=== PATIENT | female | born 1955 | race Caucasian/White ===

== ENCOUNTER 2020-12-21 11:03 | Day surgery (SDC) | payer OTHER ==
--- NOTE | 2020-12-14 15:22 | RAD REPORT ---
EXAM DESCRIPTION: RAD - Chest Pa And Lat (2 Views) - 12/14/2020 3:17 pm CLINICAL HISTORY: pre op Chest pain. COMPARISON: No comparisons FINDINGS: The lungs are clear. The heart is normal in size. No displaced fractures. IMPRESSION: No acute or concerning finding suspected.
[2020-12-14 15:30] LABS: Absolute Lymphocytes (CBC) 1.6 K/uL (0.7-4.9); Basophils % 0.5 % (0-1.3); Hematocrit 30.3 % (36.0-45.0); Lymphocytes % 18.7 % (15.3-44.8); MPV 7.8 fL (7.6-11.3); RBC Red Blood Cell Count 3.82 M/uL (3.86-4.86)
[2020-12-14 15:31] LABS: Protime INR 0.92
[2020-12-14 15:44] LABS: Potassium 3.9 mmol/L (3.5-5.1)
[2020-12-21] MEDS: NA CHLORIDE 0.9% 1,000 ML ONE (11:30)
[2020-12-21] MEDS ORDERED: CEFAZOLIN/SWI 2gm 2 GM/20 ML SYR ONE (11:45)
[2020-12-21] MEDS ORDERED: FENTANYL CITR 100 MCG/2 ML ONE (13:01)
[2020-12-21] MEDS ORDERED: MIDAZOLAM HCL 2 MG/2 ML INJ ONE (13:01)
[2020-12-21] MEDS ORDERED: propofoL 200 MG/20 ML VIAL IV ONE (13:01)
[2020-12-21] MEDS ORDERED: ONDANSETRON 4 MG/2 ML VIAL ONE (13:40)
[2020-12-21] MEDS ORDERED: GENTAMICIN 100 MG/100 ML BAG 100 ML IV ONE (13:46)
--- NOTE | 2020-12-21 14:28 | RAD REPORT ---
EXAM DESCRIPTION: RAD - Urethrocystogrphy Retrograde - 12/21/2020 2:12 pm CLINICAL HISTORY: ICD N 20.0 FINDINGS: 21 fluoroscopic spot images obtained. Fluoroscopy time 0.57 minutes Both ureters were cannulated and contrast administered. Examination was performed by Dr Torres. Nitin se refer to his report for additional findings and
[2020-12-21 14:35] VITALS: O2SAT 98
[2020-12-21] MEDS ORDERED: HYDROCODONE/APAP 5/325 MG TAB PO PRN (15:23)
[2020-12-21] MEDS ORDERED: PHENAZOPYRIDINE 100MG TAB PO ONE (15:23)
[2020-12-21 15:24] VITALS: BP 121/64; TEMP 98.8
--- NOTE | 2020-12-21 19:09 | OP ---
Surgeon: MARYJO KILGORE Preoperative Diagnosis: 1.Bladder lesion. 2.Persistent lower urinary tract symptoms. Postoperative Diagnoses: 1.Bladder lesion. 2.Persistent lower urinary tract symptoms. 3.Bilateral ureterovesical junction obstruction. Principle Procedures: 1.Cystoscopy. 2.Bladder biopsies, multiple for a lesion occupying approximately 0.5 of volume of the bladder. 3.Fulguration of lesions and biopsy site. 4.Bilateral retrograde pyelographies. Indication For Procedure: Ms. Mercado presented to the Urology Clinic with persistent bothersome lower urinary symptoms in the setting of recurrent and persistent gross hematuria. Despite multiple cultur es that had been sent revealing no growth or only a low colony count fungal, and despite treatment wi th cefpodoxime as well as fluconazole previously, the patient's persistent symptoms and presence of t he lesion persisted. As a result, she was recommended for operative evaluation with cystoscopy and b ladder biopsies as above. Because she had previously undergone an ultrasound, which saw no upper tra ct abnormalities, retrograde pyelographies were recommended to rule out any upper tract urothelial le sions. Procedure In Detail: The patient was consented in the preoperative holding area before being transfe rred to the operative suite where general anesthesia was induced. She was given Ancef plus gentamici n 100 mg IV antimicrobial prophylaxis. Pneumo boots were provided for DVT prophylaxis. She was plac ed in the lithotomy position, padded and secured to the table appropriately. Her genitalia were prep ped using Hibiclens, and she was draped in standard fashion. The case was begun using a 22-Swedish ri gid cystoscope to traverse the urethra and into the bladder. Immediately was noted significant cloud y urine, which was taken for culture. The bladder was decompressed and then irrigated in order to im prove visualization. Once the debris and cloudiness was clear, I then surveyed the bladder and noted the following: Significant erythematous and slightly raised mucosa involving the inferior 1/2 of the bladder extendi ng from the right lateral wall through the posterior wall of the bladder and into the left lateral do me including a portion of the bladder neck but sparing most of the dome with a clear line of demarcat ion observed. No papillary mucosal lesions were noted. The mucosa was significantly friable in thes e locations and did bleed with even mild contact with the cystoscope. As a result, biopsies were the n performed initially starting with the left lateral wall. At least 3 biopsies were taken of that si te to obtain termite control service representative sampling of the lesion in that region. Because of the extensive bleeding associated with each biopsy due to the underlying inflammation likely present, I then had to pause t he biopsies to fulgurate the areas biopsied in order to continue visualization. I then proceeded to the posterior wall of the bladder where again several biopsies were taken to representatively sample the lesion in that region. Again, because of the significant bleeding associated with each biopsy si te, I had to again fulgurate each of those areas extensively before being able to visualize and proce ed. I then proceeded to the right lateral wall where additional termite control service representative biopsies were taken i n that region and sent for pathologic analysis. Fulguration was performed of those biopsy sites and the bladder was irrigated and repeat visualization confirmed adequate biopsies of a significant porti on of the lesion occupying the above-mentioned component of the bladder. I then turned my attention to perform a retrograde pyelogram on the left side. Left retrograde pyelography: Using a cone-tipped catheter and a 70:30 mixture of Omnipaque and saline, contrast was injected via t he lumen of the cone-tipped catheter and did only propagate into the distal component of the ureter b efore the contrast would simply emanate around the cone-tip catheter and efflux into the bladder. De spite attempts to manipulate and reposition the cone-tipped catheter, no further contrast could succe ssfully be navigated into the mid or proximal ureter for evaluation further. As a result, I paused a nd turned my attention to the right ureteral orifice. Right retrograde pyelography: Similarly, using the cone-tipped catheter and a 70:30 mixture of Omnipaque and saline, contrast was i njected on the right side, but none of it would propagate up any component of the ureter and simply e ffluxed into the bladder. As a result, I employed a 5-Swedish ureteral access catheter and utilized t he tip of a hydrophilic glide wire 0.35 in order to gain access with some difficulty into the right u reteral orifice. I then used a 70:30 mixture of Omnipaque and saline to inject contrast and did obse rve the contrast to propagate with some resistance up the distal into the mid and proximal ureter bef ore partially entering the renal pelvis. No ureteral filling defects were noted though there were ar eas of dilatation of the ureter along the course of the ureter without any significant hydrostatic co lumn noted. I thus advanced the 5-Swedish ureteral access catheter further into the mid and ultimatel y into the proximal ureter, injecting full-strength contrast each time in order to get the contrast t o enter a minimally dilated renal pelvis and each of the calices and infundibulum were delineated wit hout evidence of filling defect. There was some mild tortuosity at the level of the ureteropelvic ju nction on the right side indicative of a degree of obstruction, likely at the ureterovesical junction . I thus removed the 5-Swedish ureteral access catheter to observe drainage on the right side, and wh ile drainage was indeed noted, there was delay in the drainage indicative of partial obstruction. I then turned my attention back to the left ureteral orifice and attempted to utilize the 5-Swedish ur eteral access catheter along with the hydrophilic glide wire as before in order to gain access into t he ureteral orifice to have more success with performing the retrograde pyelogram with full-strength contrast. However, despite multiple attempts, I was unable to navigate the 5-Swedish ureteral access catheter more than a few millimeters into the ureteral orifice. Attempts to inject contrast would on ly efflux the contrast around the catheter back into the bladder until eventually a submucosal dissec tion occurred and contrast did fill around the distal ureter within the intravesical component of the ureter in the bladder. As a result, I removed the catheter and attempted an angled Glidewire with n o success to gain access into the ureteral orifice and proximal ureter for the purposes of attempted retrograde pyelogram and stent placement. I then surveyed the bladder again, and each of the biopsy sites was adequately hemostatic, and so an 18-Swedish urethral Santizo catheter was placed into her blad ml with ease with 10 cc of sterile water placed into the balloon. The catheter was placed to a floo r bag, and the patient was taken out of the lithotomy position. She was then awakened from general a nesthesia, transferred to a stretcher, and then transferred to the recovery room in good condition. Complications: Left UVJ submucosal contrast extravasation. Discharge disposition: I counseled the patient as well as her to be aware of the potential o bstruction that could be caused due to the submucosal extravasation of contrast around the ureteral o rifice of the left ureter. I explained that should she experience any flank pain or discomfort, this could represent obstruction, which may require intervention. As such, I asked him to let me know. We will assess for this when she follows up on Thursday or Thursday with nurse practitioner, Zayda gilliland Santizo catheter removal and voiding trial. An assessment for CVA tenderness should be also made at that time. She will be discharged with a prescription for Augmentin 500 mg p.o. t.i.d. for the next 5 days while we await the results of the cystoscopic bladder aspirate urine culture sent intraoperati vely. Subsequent followup should be established with me in the Urology Clinic in about 2 weeks to di scuss the results of the pathology from her bladder biopsies. Should there be any sign of obstructio n, a renal ultrasound should be obtained probably as a percutaneous nephrostomy tube would have to be considered. As such, a serum basic metabolic panel should also be obtained if there is any evidence of obstruction to assess for signs of renal function decline, which would mandate placement of the p ercutaneous nephrostomy tube. DAVID/MODL Voice ID: [id number] Report ID: [id number]
== END 2020-12-21 15:50 | disposition home or self-care (01) ==
LOC: OR 11:03
PROVIDERS: ATTEND Urology
PROC: 0TBB8ZX Excision of Bladder, Via Natural or Artificial Opening Endoscopic, Diagnostic (ICD-10-PCS; 2020-12-21)
PROC: 0TBB8ZX Excision of Bladder, Via Natural or Artificial Opening Endoscopic, Diagnostic (ICD-10-PCS; principal; 2020-12-21 14:00)
DX: N30.00 Acute cystitis without hematuria (principal); N39.0 Urinary tract infection, site not specified; N81.2 Incomplete uterovaginal prolapse; N13.70 Vesicoureteral-reflux, unspecified; Z20.822 Contact with and (suspected) exposure to COVID-19
CPT/HCPCS: 52204; 52234; 87088; 85025; 87086 ×2; 80048; 36415; 85610; 82947 ×2; 88305; 71046; 74450; 51610; U0002; J2704; J2250; J3010; J1580; J0690; J7030; J2405

== ENCOUNTER 2021-02-17 21:22 | Emergency (ER) | payer OTHER ==
--- OUTSIDE RECORDS SUMMARY | 2021-02-17 21:25 | XMS REPORT | Continuity of Care Document ---
:1955 Author Organization [facility] Address [facility] [place] [address] Care Team Providers Name Role Phone Unavailable Unavailable Unavailable Problems This patient has no known problems. Allergies, Adverse Reactions, Alerts This patient has no known allergies or adverse reactions. Medications This patient has no known medications. Procedures This patient has no known procedures. Encounters Start End Encounter Admission Attending Care Care Encounter Source Date/Time Date/Time Type Type Clinicians Facility Department ID 2021-01-07 2021-01-07 Outpatient [facility] [id number] [facility] 2020-12-25 2020-12-25 Outpatient [facility] [id number] [facility] 2020-11-29 2020-11-29 Outpatient [facility] [id number] [facility] 2020-11-27 2020-11-27 Outpatient [facility] [id number] [facility] 2020-10-31 2020-10-31 Outpatient [facility] [id number] [facility] 2020-10-23 2020-10-23 Outpatient [facility] [id number] [facility] 2020-08-08 2020-08-08 Outpatient [facility] [id number] [facility] Clinics Results This patient has no known results.
[2021-02-17] MEDS ORDERED: NA CHLORIDE 0.9% 1,000 ML ONE (22:22)
[2021-02-17 22:36] LABS: Absolute Lymphocytes (CBC) 1.7 K/uL (0.7-4.9); Basophils % 0.4 % (0-1.3); Hematocrit 28.5 % (36.0-45.0); Lymphocytes % 15.7 % (15.3-44.8); RBC Red Blood Cell Count 3.76 M/uL (3.86-4.86)
[2021-02-17 22:56] LABS: ALT/SGPT 20 U/L (12-78); AST/SGOT 9 U/L (15-37); Albumin 3.3 g/dL (3.4-5.0); Alkaline Phosphatase 110 U/L (45-117); BUN Blood Urea Nitrogen 29 mg/dL (7-18); Bicarbonate 24 mmol/L (21-32); Bilirubin Direct < 0.1 mg/dL (0-0.2); Bilirubin Total 0.2 mg/dL (0.2-1.0); Glucose Level 168 mg/dL (74-106); Lipase 92 U/L (73-393); Potassium 4.1 mmol/L (3.5-5.1); Protein, Total 7.6 g/dL (6.4-8.2); Sodium Level 140 mmol/L (136-145)
[2021-02-17 23:02] LABS: Protime INR 0.97
[2021-02-18 00:03] LABS: Urine Blood 3+ (Negative); Urine Glucose 2+ (Negative); Urine Protein 3+ (Negative); Urine Specific Gravity 1.025 (1.005-1.030)
[2021-02-18 00:23] LABS: Urine Bacteria <20 /HPF (<20); Urine RBC 20-50 /HPF (NONE SEEN)
[2021-02-18] MEDS ORDERED: CEFTRIAXONE/SWI 1gm 1 GM/10 ML SYR ONE (00:53)
[2021-02-18] MEDS ORDERED: NA CHLORIDE 0.9% 100 ML ONE (00:53)
--- NOTE | 2021-02-18 00:56 | ER ---
Nurse's Notes [facility] Name: Blossom Mercado Age: 65 yrs Sex: Female : 1955 Arrival Date: 02/17/2021 Time: 21:26 Bed 8 Private MD: Diagnosis: Cystitis, unspecified with hematuria Presentation: 02/17 21:36 Chief complaint: Patient states: Urinated with pure red blood with clots in it today ca1 started around [address] until now[address] See Dr[address] Torres, urologist for Interstitial Cystitis. I've had blood tinged urine before but this time it's just blood with clots. Denies fever. Denies burning with urination. Coronavirus screen: Client denies travel out of the [place] in the last 14 days. At this time, the client does not indicate any symptoms associated with coronavirus-19. Ebola Screen: Patient negative for fever greater than or equal to 101.5 degrees Fahrenheit, and additional compatible Ebola Virus Disease symptoms Patient denies exposure to infectious person. Patient denies travel to an Ebola-affected area in the 21 days before illness onset. No symptoms or risks identified at this time. Initial Sepsis Screen: Does the patient meet any 2 criteria? No. Patient's initial sepsis screen is negative. Does the patient have a suspected source of infection? No. Patient's initial sepsis screen is negative. Risk Assessment: Do you want to hurt yourself or someone else? Patient reports no desire to harm self or others. Onset of symptoms was February 17, 2021. 21:36 Method Of Arrival: Ambulatory ca1 21:36 Acuity: INGRID 2 ca1 Historical: - Allergies: 21:45 Sulfa (Sulfonamide Antibiotics); ca1 - Home Meds: 21:45 metformin 750 mg Oral Tb24 1 tab twice a day [Active]; clopidogrel 75 mg oral tab 1 tab ca1 once daily [Active]; atorvastatin 40 mg oral tab 1 tab once daily [Active]; losartan 50 mg oral tab 1 tab once daily [Active]; Lantus 100 unit/mL Sub-Q soln daily [Active]; ozempic 0.25 weekly [Active]; montelukast 10 mg oral tab 1 tab once daily [Active]; amitriptyline 25 mg Oral tab 1 tab once daily [Active]; Elmiron 100 mg oral cap 1 cap 3 times per day [Active]; - PMHx: 21:45 insterstitial cystitis; Diabetes - IDDM; Hypertension; TIA; CVA; ca1 - PSHx: 21:45 Hysterectomy; Cholecystectomy; ca1 - Immunization history:: Client reports having NOT received the Covid vaccine. Pneumococcal vaccine is not up to date, Flu vaccine is not up to date. - Social history:: Smoking status: Patient denies any tobacco usage or history of. Screenin:49 Abuse screen: Denies threats or abuse. Denies injuries from another. Nutritional rr5 screening: No deficits noted. Tuberculosis screening: No symptoms or risk factors identified. Fall Risk IV access (20 points). Total Greer Fall Scale indicates No Risk (0-24 pts). Assessment: 23:15 General: Appears in no apparent distress. comfortable, Behavior is calm, cooperative, rr5 appropriate for age. Pain: Complains of pain in pelvis. Neuro: Level of Consciousness is awake, alert, obeys commands, Oriented to person, place, time, situation. Cardiovascular: Capillary refill < 3 seconds Patient's skin is warm and dry. Respiratory: Airway is patent Respiratory effort is even, unlabored, Respiratory pattern is regular, symmetrical. GI: No signs and/or symptoms were reported involving the gastrointestinal system. : Urine is cloudy, Reports blood with clot urine. EENT: No signs and/or symptoms were reported regarding the EENT system. Derm: Skin is intact, is healthy with good turgor, Skin temperature is warm. Musculoskeletal: Capillary refill < 3 seconds. 02/18 00:15 Reassessment: Patient appears in no apparent distress at this time. Patient and/or rr5 family updated on plan of care and expected duration. Pain level reassessed. Patient is alert, oriented x 3, equal unlabored respirations, skin warm/dry/pink. awaiting for results. 01:18 Reassessment: Patient appears in no apparent distress at this time. Patient is alert, rr5 oriented x 3, equal unlabored respirations, skin warm/dry/pink. discharge instruction given and explained without complaints made Patient states symptoms have improved. Vital Signs: 02/17 21:36 BP 125 / 84; Pulse 128; Resp 18 S; Temp 98.1(TE); Pulse Ox 100% on R/A; Weight 87.09 kg ca1 (R); Height 5 ft. 9 in. (175.26 cm) (R); Pain 0/10; 23:42 BP 149 / 82; Pulse 102; Resp 14; Pulse Ox 100% ; rv 23:46 BP 124 / 70; Pulse 104; Resp 22; Pulse Ox 99% ; rr5 02/18 00:56 BP 147 / 85; Pulse 102; Resp 20; Pulse Ox 99% ; rr5 01:19 BP 134 / 75; Pulse 105; Resp 19; Pulse Ox 98% ; rr5 02/17 21:36 Body Mass Index 28.35 (87.09 kg, 175.26 cm) ca1 ED Course: 02/17 21:26 Patient arrived in ED. bp1 21:40 Triage completed. ca1 21:45 Arm band placed on right wrist. ca1 21:47 Luis Zepeda, GREGORIO is Primary Nurse. rr5 21:48 Patient has correct armband on for positive identification. Bed in low position. Call rr5 light in reach. bus driver/monitor on. Pulse ox on. NIBP on. 21:52 Jose Antonio Reynoso MD is Attending Physician. mh7 22:00 Inserted saline lock: 20 gauge in right forearm, using aseptic technique. Blood rr5 collected. 22:41 CT Stone Protocol In Process Unspecified. EDMS 02/18 00:54 Sonu Torres MD is Referral Physician. mh7 01:19 No provider procedures requiring assistance completed. IV discontinued, intact, rr5 bleeding controlled, No redness/swelling at site. Pressure dressing applied. Administered Medications: 02/17 22:10 Drug: NS 0.9% 1000 ml Route: IV; Rate: 1000 ml; Site: right forearm; rr5 02/18 01:19 Follow up: Response: No adverse reaction; IV Status: Completed infusion; IV Intake: rr5 1000ml 00:38 Drug: Rocephin (cefTRIAXone) 1 grams Route: IV; Rate: per protocol; Site: right forearm;rr5 01:18 Follow up: Response: No adverse reaction; IV Status: Completed infusion; IV Intake: rr5 100ml Intake: 01:18 IV: 100ml; Total: 100ml. rr5 01:19 IV: 1000ml; Total: 1100ml. rr5 Outcome: 00:55 Discharge ordered by . mh7 01:19 Discharged to home ambulatory, with family. rr5 01:19 Condition: stable 01:19 Discharge instructions given to patient, Instructed on discharge instructions, follow up and referral plans. medication usage, Demonstrated understanding of instructions, follow-up care, medications, Prescriptions given X 1. 01:20 Patient left the ED. rr5 Signatures: Dispatcher [employer] EDMS Kristopher Martin RN RN rv Roque, Raymond, RN RN rr5 Nicole Sorenson RN RN ca1 Paniauga, Brittany bp1 Holmes, Maurice, MD MD 7
--- NOTE | 2021-02-18 00:56 | EDPHYS ---
Physician Documentation [facility] Name: Blossom Mercado Age: 65 yrs Sex: Female : 1955 Arrival Date: 02/17/2021 Time: : Bed 8 Private MD: ED Physician Jose Antonio Reynoso HPI: 02/18 00:22 This 65 yrs old Female presents to ER via Ambulatory with complaints of Blood mh7 in Urine. 00:22 The patient presents with urinary symptoms, hematuria. Onset: The symptoms/episode mh7 began/occurred yesterday, at 16:00. Modifying factors: The symptoms are alleviated by nothing, the symptoms are aggravated by urinating. Associated signs and symptoms: Pertinent positives: hematuria, Pertinent negatives: constipation, cramping, diarrhea, dyspareunia, dysuria, fever, nausea, urinary frequency, vaginal bleeding, vaginal discharge, vomiting. Severity of symptoms: At their worst the symptoms were moderate, yesterday, in the emergency department the symptoms have resolved, and did so just prior to arrival. The patient has experienced similar episodes in the past, a few times. Historical: - Allergies: 02/17 21:45 Sulfa (Sulfonamide Antibiotics); ca1 - Home Meds: 21:45 metformin 750 mg Oral Tb24 1 tab twice a day [Active]; clopidogrel 75 mg oral tab 1 tab ca1 once daily [Active]; atorvastatin 40 mg oral tab 1 tab once daily [Active]; losartan 50 mg oral tab 1 tab once daily [Active]; Lantus 100 unit/mL Sub-Q soln daily [Active]; ozempic 0.25 weekly [Active]; montelukast 10 mg oral tab 1 tab once daily [Active]; amitriptyline 25 mg Oral tab 1 tab once daily [Active]; Elmiron 100 mg oral cap 1 cap 3 times per day [Active]; - PMHx: 21:45 insterstitial cystitis; Diabetes - IDDM; Hypertension; TIA; CVA; ca1 - PSHx: 21:45 Hysterectomy; Cholecystectomy; ca1 - Immunization history:: Client reports having NOT received the Covid vaccine. Pneumococcal vaccine is not up to date, Flu vaccine is not up to date. - Social history:: Smoking status: Patient denies any tobacco usage or history of. ROS: 04/19 00:22 Constitutional: Negative for fever, chills, and weight loss, Eyes: Negative for injury, mh7 pain, redness, and discharge, ENT: Negative for injury, pain, and discharge, Neck: Negative for injury, pain, and swelling, Cardiovascular: Negative for chest pain, palpitations, and edema, Respiratory: Negative for shortness of breath, cough, wheezing, and pleuritic chest pain, Abdomen/GI: Negative for abdominal pain, nausea, vomiting, diarrhea, and constipation, Back: Negative for injury and pain, MS/Extremity: Negative for injury and deformity, Skin: Negative for injury, rash, and discoloration, Neuro: Negative for headache, weakness, numbness, tingling, and seizure, Psych: Negative for depression, anxiety, suicide ideation, homicidal ideation, and hallucinations, Allergy/Immunology: Negative for hives, rash, and allergies, Endocrine: Negative for neck swelling, polydipsia, polyuria, polyphagia, and marked weight changes. Exam: 00:28 Constitutional: This is a well developed, well nourished patient who is awake, alert, mh7 and in no acute distress. Head/Face: Normocephalic, atraumatic. Eyes: Pupils equal round and reactive to light, extra-ocular motions intact. Lids and lashes normal. Conjunctiva and sclera are non-icteric and not injected. Cornea within normal limits. Periorbital areas with no swelling, redness, or edema. Neck: Trachea midline, no thyromegaly or masses palpated, and no cervical lymphadenopathy. Supple, full range of motion without nuchal rigidity, or vertebral point tenderness. No Meningismus. Chest/axilla: Normal chest wall appearance and motion. Nontender with no deformity. No lesions are appreciated. 00:28 Respiratory: Lungs have equal breath sounds bilaterally, clear to auscultation and percussion. No rales, rhonchi or wheezes noted. No increased work of breathing, no retractions or nasal flaring. Abdomen/GI: Soft, non-tender, with normal bowel sounds. No distension or tympany. No guarding or rebound. No evidence of tenderness throughout. Back: No spinal tenderness. No costovertebral tenderness. Full range of motion. Skin: Warm, dry with normal turgor. Normal color with no rashes, no lesions, and no evidence of cellulitis. MS/ Extremity: Pulses equal, no cyanosis. Neurovascular intact. Full, normal range of motion. Neuro: Awake and alert, GCS 15, oriented to person, place, time, and situation. Cranial nerves II-XII grossly intact. Motor strength 5/5 in all extremities. Sensory grossly intact. Cerebellar exam normal. Normal gait. Psych: Awake, alert, with orientation to person, place and time. Behavior, mood, and affect are within normal limits. 00:28 Cardiovascular: Rate: tachycardic, Rhythm: regular, Pulses: no pulse deficits are appreciated, Heart sounds: normal, normal S1and S2, Edema: is not appreciated, JVD: is not appreciated. Vital Signs: 02/17 21:36 BP 125 / 84; Pulse 128; Resp 18 S; Temp 98.1(TE); Pulse Ox 100% on R/A; Weight 87.09 kg ca1 (R); Height 5 ft. 9 in. (175.26 cm) (R); Pain 0/10; 23:42 BP 149 / 82; Pulse 102; Resp 14; Pulse Ox 100% ; rv 23:46 BP 124 / 70; Pulse 104; Resp 22; Pulse Ox 99% ; rr5 02/18 00:56 BP 147 / 85; Pulse 102; Resp 20; Pulse Ox 99% ; rr5 01:19 BP 134 / 75; Pulse 105; Resp 19; Pulse Ox 98% ; rr5 02/17 21:36 Body Mass Index 28.35 (87.09 kg, 175.26 cm) ca1 MDM: 00:52 Differential diagnosis: kidney stone, urinary tract infection, Hematuria. Data [facility] reviewed: vital signs, nurses notes, lab test result(s), CBC, electrolytes, urinalysis, EKG, radiologic studies, CT scan. Data interpreted: Pulse oximetry: on room air is 99 %. Interpretation: normal. Counseling: I had a detailed discussion with the patient and/or guardian regarding: the historical points, exam findings, and any diagnostic results supporting the discharge/admit diagnosis, lab results, radiology results, the need for outpatient follow up, to return to the emergency department if symptoms worsen or persist or if there are any questions or concerns that arise at home. Response to treatment: the patient's symptoms have resolved after treatment, the patient's blood pressure is in an acceptable range, mental status has returned to baseline, the patient no longer shows bradycardia, the patient is not short of breath, the patient is not tachycardic, the patient's pain is gone, the patient's temperature has normalized, the patient is now symptom free, patient is well hydrated. Physician consultation: Sonu Torres MD was contacted at 22:55, regarding patient's condition, and will see patient in office, in 2-3 days. 00:55 Patient medically screened. [facility] 02/17 22:03 Order name: Basic Metabolic Panel; Complete Time: 23:06 [facility] 02/17 22:03 Order name: CBC with Diff; Complete Time: 22:47 [facility] 02/17 22:03 Order name: Hepatic Function; Complete Time: 23:06 [facility] 02/17 22:03 Order name: Lipase; Complete Time: 23:06 [facility] 02/17 22:03 Order name: Protime (+inr); Complete Time: 23:06 [facility] 02/17 22:03 Order name: Ptt, Activated; Complete Time: 23:06 [facility] 02/17 22:03 Order name: IV Saline Lock; Complete Time: 22:11 [facility] 02/17 22:03 Order name: Type And Screen; Complete Time: 00:49 [facility] 02/17 22:05 Order name: CT Stone Protocol [facility] 02/17 23:07 Order name: Urine Microscopic Only; Complete Time: 00:29 [facility] 02/17 23:07 Order name: Urine Culture [facility] 02/17 23:09 Order name: Urine Dipstick--Ancillary (enter results); Complete Time: 00:29 [facility] 02/17 22:03 Order name: Labs collected and sent; Complete Time: 22:11 [facility] 02/17 22:03 Order name: Urine Dipstick-Ancillary (obtain specimen); Complete Time: 23:07 [facility] 02/17 22:03 Order name: EKG - Nurse/Tech; Complete Time: 22:11 [facility] Administered Medications: 02/17 22:10 Drug: NS 0.9% 1000 ml Route: IV; Rate: 1000 ml; Site: right forearm; rr5 02/18 01:19 Follow up: Response: No adverse reaction; IV Status: Completed infusion; IV Intake: rr5 1000ml 00:38 Drug: Rocephin (cefTRIAXone) 1 grams Route: IV; Rate: per protocol; Site: right forearm;rr5 01:18 Follow up: Response: No adverse reaction; IV Status: Completed infusion; IV Intake: rr5 100ml Disposition: 02/18/21 00:55 Discharged to Home. Impression: Cystitis, unspecified with hematuria. - Condition is Stable. - Discharge Instructions: Hematuria, Adult, Urinary Tract Infection, Adult, Hwxm-[id number]. - Prescriptions for Keflex 500 mg Oral Capsule - take 1 capsule by ORAL route every 6 hours for 10 days; 40 capsule. - Medication Reconciliation Form, Thank You Letter, Antibiotic Education, Prescription Opioid Use form. - Follow up: Private Physician; When: 1 - 2 days; Reason: Worsening of condition, Recheck today's complaints, Continuance of care, Re-evaluation by your physician. Follow up: Sonu Torres MD; When: 2 - 3 days; Reason: If symptoms return, Worsening of condition, Recheck today's complaints, Continuance of care, Re-evaluation by your physician. - Problem is an acute exacerbation. - Symptoms have improved. Signatures: Dispatcher [employer] EDLuis Mathur RN RN rr5 Nicole Sorenson RN RN ca1 Jose Antonio Reynoso MD MD mh7 Corrections: (The following items were deleted from the chart) 01:20 00:55 02/18/2021 00:55 Discharged to Home. Impression: Cystitis, unspecified with rr5 hematuria. Condition is Stable. Forms are Medication Reconciliation Form, Thank You Letter, Antibiotic Education, Prescription Opioid Use. Follow up: Private Physician; When: 1 - 2 days; Reason: Worsening of condition, Recheck today's complaints, Continuance of care, Re-evaluation by your physician. Follow up: Sonu Torres; When: 2 - 3 days; Reason: If symptoms return, Worsening of condition, Recheck today's complaints, Continuance of care, Re-evaluation by your physician. Problem is an acute exacerbation. Symptoms have improved. mh7
[2021-02-18 01:33] VITALS: TEMP 98.1
[2021-02-18 01:38] VITALS: BP 134/75; O2SAT 98
--- NOTE | 2021-02-18 11:12 | RAD REPORT ---
EXAM DESCRIPTION: CT - Stone Protocol - 02/18/2021 6:48 am COMPARISON: None. CLINICAL HISTORY: [facility] bloody urine TECHNIQUE: CT of the abdomen and pelvis was acquired without IV contrast material, according to the renal stone protocol. Coronal and sagittal reconstructions were obtained. Automated exposure contro l was utilized on this examination as a dose lowering technique. FINDINGS: Lung bases: Clear. *Limited evaluation of the solid organs due to lack of IV contrast. Liver: Normal. Gallbladder and biliary: Cholecystectomy. Unremarkable biliary tree. Pancreas: Fatty infiltration. Spleen: Normal. Adrenal glands: Normal. Kidneys and ureters: No renal or ureteral calculi are present. Kidneys are normal. Stomach and Small Bowel: Small hiatal hernia. Normal small bowel. Urinary bladder: Bladder wall thickening is present with adjacent fat stranding. Uterus and Adnexa: Hysterectomy. Colon and Appendix: Mild colonic diverticulosis. No evidence of appendicitis. Peritoneal cavity: No ascites or free air. Retroperitoneum and lymph nodes: Normal. Vascular: Normal. Musculoskeletal and soft tissues: Soft tissues are unremarkable. Lumbar spondylosis.No aggressive bon e lesions. No compression fracture. IMPRESSION: 1. Bladder wall thickening with adjacent fat stranding, compatible with cystitis. No venancio dence of nephrolithiasis. 2. Small hiatal hernia. 3. Mild colonic diverticulosis. Electronically signed by: Rey Nieves MD 02/17/2021 11:08 PM CDT Due to temporary technical issues with the PACS/Fluency reporting system, reports are being signed by the in house radiologist without review as a courtesy to ensure prompt reporting. The interpreting r adiologist is fully responsible for the content of the report.
[2021-02-19 14:49] LABS: Urine Blood 3+ (Negative); Urine Glucose 2+ (Negative); Urine Protein 3+ (Negative); Urine Specific Gravity 1.025 (1.005-1.030)
== END 2021-02-18 01:20 | disposition home or self-care (01) ==
LOC: ER 21:22
DX: N30.91 Cystitis, unspecified with hematuria (principal); I10 Essential (primary) hypertension; E11.9 Type 2 diabetes mellitus without complications; Z79.4 Long term (current) use of insulin
CPT/HCPCS: 93005; 87088; 85025; 87086; 80048; 36415; 86900; 86850; 85610; 86901; 80076; 85730; 83690; 76377; 74176; J0696; J7030; 81003; 81015; 96361; 96365; 99284

== ENCOUNTER 2022-01-14 10:44 | Day surgery (SDC) | payer OTHER, MEDICARE ==
[2022-01-09 13:19] LABS: Hematocrit 31.5 % (36.0-45.0); Lymphocytes % 14.5 % (15.3-44.8); MPV 7.7 fL (7.6-11.3); RBC Red Blood Cell Count 3.87 M/uL (3.86-4.86)
--- NOTE | 2022-01-09 13:21 | RAD REPORT ---
EXAM DESCRIPTION: RAD - Chest Pa And Lat (2 Views) - 01/09/2022 1:12 pm CLINICAL HISTORY: pre op pending bladder biopsy COMPARISON: Chest Pa And Lat (2 Views) dated 12/14/2020 FINDINGS: Lines: None. Lungs: No evidence of edema or pneumonia. Pleural: No significant pleural effusions or pneumothorax. Cardiac: The heart size is within normal limits. Bones: No acute fractures. Exaggerated thoracic kyphosis. Other: IMPRESSION: No acute cardiopulmonary disease.
[2022-01-09 13:24] LABS: Protime INR 1.01
[2022-01-09 13:36] LABS: Potassium 4.4 mmol/L (3.5-5.1)
--- NOTE | 2022-01-10 13:12 | EKG ---
Test Date: 2022-01-09 Test Time: 13:01:01 Brim Pouncer Machine Operator: JOSH MEASUREMENT RESULTS: Intervals: Rate: 97 HI: 144 QRSD: 82 QT: 356 QTc: 452 [place]: P: 55 HI: 144 QRS: 18 T: 42 INTERPRETIVE STATEMENTS: Normal sinus rhythm Cannot rule out Anterior infarct, age undetermined Abnormal ECG Compared to ECG 02/17/2021 21:53:22 Sinus tachycardia no longer present Myocardial infarct finding still present Electronically Signed On 01-10-22 13:08:17 BEVERAGE DISTILLER by Coleman Jaeger
[2022-01-14] MEDS ORDERED: NA CHLORIDE 0.9% 1,000 ML ONE ×2 (11:09→15:12)
[2022-01-14] MEDS ORDERED: CEFAZOLIN/SWI 2gm 2 GM/20 ML SYR ONE (11:10)
[2022-01-14] MEDS ORDERED: ACETAMINOPHEN 500 MG TAB ONE (11:42)
[2022-01-14] MEDS ORDERED: FENTANYL CITR 100 MCG/2 ML ONE ×2 (13:50→14:58)
[2022-01-14] MEDS ORDERED: propofoL 200 MG/20 ML VIAL IV ONE (13:51)
[2022-01-14] MEDS ORDERED: MIDAZOLAM HCL 2 MG/2 ML INJ ONE (13:51)
[2022-01-14 16:07] VITALS: O2SAT 96
[2022-01-14] MEDS ORDERED: CODEINE 30MG/APAP 300MG TAB ONE (17:08)
[2022-01-14 17:53] VITALS: BP 127/56; TEMP 97
--- NOTE | 2022-01-14 20:49 | OP ---
Surgeon: MARYJO KILGORE Preoperative Diagnoses: 1.Chronic cystitis, suspected interstitial cystitis. 2.Methicillin-resistant Staphylococcus aureus in urine. 3.History of "bladder lift" procedure suspected suburethral sling. Postoperative Diagnoses: 1.Chronic cystitis, suspected interstitial cystitis. 2.Methicillin-resistant Staphylococcus aureus in urine. 3.History of "bladder lift" procedure suspected suburethral sling. 4.Grade 3 cystocele. 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 Principal Procedures: 1.Cystoscopy. 2.Bladder biopsies with fulguration-extensive fulguration required. 3.Excision of the intravesical component of pubovaginal sling mesh. Indication For Procedure: Ms. Mercado presented to Urology Clinic with bothersome urinary symptoms and pelvic discomfort that was persistent and refractory to multiple attempts at therapy. She underwent cystoscopic evaluation, which revealed significantly inflamed bladder mucosa throughout, and given e suspicion for underlying carcinoma in situ, she underwent cystoscopy and bladder biopsies. No eros ion of any sling mesh was noted despite her history of a bladder lift procedure in 2002. After biops ies were performed revealing extensive chronic inflammation, she was started on Elmiron for presumpti ve interstitial cystitis. She had significant improvement in her burning and pelvic discomfort. She was doing well for several months until the end of October or early November of this year when she a ll of a sudden developed florid incontinence requiring multiple depends undergarments daily. A repea t cystoscopic evaluation was performed and again identified significantly improved appearance of her bladder mucosa, but some remnant slightly erythematous patches that were suspicious for either chroni c inflammation versus malignancy. She was trialed on anticholinergic therapy and a urodynamics evalu ation was performed, but the incontinence was so severe insufficient testing was able to be achieved. She also had no significant improvement from the anticholinergic therapy; so I recommended repeat o perative evaluation with bladder biopsies to rule out malignancy that might have been missed on the i nitial set of biopsies. She presents today for that evaluation. Procedure In Detail: The patient was consented in the preoperative holding area before being transfe rred to operative suite where general anesthesia was induced. She was given Ancef 2 g IV antimicrobi al prophylaxis. Of note, she was already taking Levaquin as prescribed on Thursday for MRSA in her u rine. Pneumo boots were provided for DVT prophylaxis. She was placed in the lithotomy position, pad ded and secured to the table appropriately. Her genitalia were prepped using Hibiclens and draped in standard fashion. The case was begun using a 22-Italian rigid cystoscope to traverse the urethra and into the bladder. Of note, prior to insertion of the cystoscope, I noted significant presence of a cystocele with incomplete uterovaginal prolapse. The cystocele was at least grade 3. I had not noti marivel this previously. So, the cystoscope was inserted via the urethra into the bladder, which was the n surveyed. As had been previously observed as an outpatient, there were slight erythematous patches throughout the bladder. Within the bladder neck on the left, very beneath a component of very infla med and fibrinous mucosa was what appeared to be a bit of lattice of mesh sling. I thus utilized the biopsy forceps to try to manipulate it and uncover it, and indeed, there was an area of what appeare d to be pubovaginal sling that had eroded through the mucosa into the bladder at the level of the maricarmen dder neck on the left. As a result, after taking biopsies of the bladder at the following sites: Tr igone, posterior, dome, left lateral wall, right lateral wall, I then fulgurated each of those biopsy sites. The bladder was extensively inflamed and was just oozing at multiple points, even sites that were not biopsied. Efforts to control that bleeding were made, but with a desire to avoid over fulg urating the mucosa of her bladder. I then turned my attention to the mesh sling erosion and utilized some cystoscopic scissors and was able to cut and remove approximately a 1 cm component of mesh that had eroded into her bladder. Unfortunately, the holmium laser was not available at this time. I th en fulgurated the irritated and bleeding mucosa around the site where the mesh was excised. I then a gain surveyed the bladder, and of note required multiple rounds of Ellik evacuation to try to remove clot obscuring oozing components of the mucosa, and fulgurating were necessary in order to achieve so me semblance of hemostasis. In the end, to avoid excessively fulgurating the mucosa any further, sin ce no definitive bleeding source was acutely identified, I then placed a 22-Italian 3-way Santizo cathet er into her bladder after removing the cystoscope. I placed 30 cc in the balloon, and then placed th e catheter to slow drip CBI and the efflux of urine was light pink. I then performed a vaginal exam and confirmed the prolapse of the bladder by filling the catheter bal loon beyond the level of the vaginal os. This was reducible. I then took the patient out of the lit hotomy position, awakened her from general anesthesia, transferred her to a stretcher, and then she w as transferred to the recovery room in good condition. Complications: None. Discharge Disposition: I intraoperatively consulted Dr. Shayy Stewart to review her case and we d iscussed the erosion of the sling material as well as the cystocele. She will take over and manageme nt of the excision of the remainder of the pubovaginal sling and in managing her cystocele/prolapse. I will continue to work with the patient in management of her pelvic discomfort as well as the UTI/M RSA in her urine likely from the eroded sling. To that end, I will discharge her home with the carin ter in place and we should arrange followup on Thursday to remove the catheter and have her do a voidin g trial. We will continue the Levaquin, which I started for her preoperatively, for at least 24 hour s after the catheter is removed. DAVID/MODL Voice ID: [id number] Report ID: [id number]
== END 2022-01-14 17:40 | disposition home or self-care (01) ==
LOC: OR 10:44
PROVIDERS: ATTEND Urology
PROC: 0TCC8ZZ Extirpation of Matter from Bladder Neck, Via Natural or Artificial Opening Endoscopic (ICD-10-PCS; 2022-01-14)
PROC: 0TBB8ZX Excision of Bladder, Via Natural or Artificial Opening Endoscopic, Diagnostic (ICD-10-PCS; principal; 2022-01-14 12:00)
DX: R39.81 Functional urinary incontinence (principal); N30.20 Other chronic cystitis without hematuria; B95.62 Methicillin resistant Staphylococcus aureus infection as the cause of diseases classified elsewhere; N81.10 Cystocele, unspecified; Z20.822 Contact with and (suspected) exposure to COVID-19
CPT/HCPCS: 93005; 87088; 85025; 87086; 80048; 36415; 85610; 82947 ×2; 88305 ×2; 87077; 87186; 71046; 52204; 52310; U0002; J2704; J2250; J3010 ×2; J0690; J7030 ×2; 88300

== ENCOUNTER 2022-02-04 10:19 | Day surgery (SDC) | payer OTHER, MEDICARE ==
[2022-02-04] MEDS ORDERED: CEFAZOLIN/SWI 2gm 2 GM/20 ML SYR ONE (10:25)
[2022-02-04] MEDS ORDERED: NA CHLORIDE 0.9% 1,000 ML ONE (10:25)
[2022-02-04] MEDS ORDERED: LIDOCAINE 1% W/EPI 1:100,000 10 ML VIAL ONE (13:01)
[2022-02-04] MEDS ORDERED: propofoL 200 MG/20 ML VIAL IV ONE ×2 (13:21→14:21)
[2022-02-04] MEDS ORDERED: MIDAZOLAM HCL 2 MG/2 ML INJ ONE (13:21)
[2022-02-04] MEDS ORDERED: FENTANYL CITR 100 MCG/2 ML ONE (13:21)
[2022-02-04] MEDS ORDERED: ONDANSETRON 4 MG/2 ML VIAL ONE (13:21)
[2022-02-04] MEDS ORDERED: LIDOCAINE 1% MPF 2 ML AMPULE ONE (13:22)
[2022-02-04] MEDS ORDERED: METHYLENE BLUE 0.5% 10 ML AMP ONE (13:47)
[2022-02-04 15:44] VITALS: BP 129/69; TEMP 98.2; O2SAT 100
--- NOTE | 2022-02-05 00:39 | OP ---
Date of Procedure: 02/04/2022 Surgeon: Shayy Stewart MD Hand Polisher: No assistants. 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 Procedures Performed: 1.Exam under anesthesia for examination of the vaginal canal using methylene blue for a fistula. 2.Cystoscopy, retrograde fill with methylene blue. Complications: No complications. Drains: No drains. Specimens: No specimens. Findings: There was a fistula in the upper border of the trigone, right in the middle. This was abo ut 1.5 cm from either ureteral orifice as part of the trigone. Then, there was mesh in the lateral w all of the bladder, about 3 cm lateral and distal to the ureteric orifice. This was only on the left side and this could be from the mini sling that was placed in a transobturator fashion. No other mesh seen in the right part of the bladder and the vaginal floor. There was also a significant prolapse, especially in the anterior distal wall. Procedure In Detail: After informed consent was verified, the patient was taken back to the OR, plac ed in the supine fashion on the operating table. After anesthesia was given, she was placed in dorsa l lithotomy position using Will stirrups. Vulva and vagina were prepped with dilute chlorhexidine. Then, the first part of the case was exam under anesthesia. Very thorough examination of the [employer] al meatus. The vaginal canal and the entire vulva area were inspected closely. Her POP-Q was -1, -1 to 0, -8. Genital hiatus of 5 cm. Moderate perineal body. Vaginal canal length was about 8 cm or 8.5. Then, posterior wall was -2, - 2, NA. Red rubber catheter was taken, 5 mL of methylene blue was diluted with 300 mL of normal saline. Then , using a 30 cc syringe, this was injected into the bladder after draining the bladder with the red r ubber catheter. Then, exam was conducted under anesthesia, where I observed for the urinary leakage. There was a spo nge that was packed and placed into the vaginal canal before the filling with the methylene blue. Once this was done, there was a clear distal leak at the opening of the fistula. This was about 2 cm from the internal meatus correlating with the finding in the bladder. Once clear flow of methylene blue was noted and rest of the anterior vaginal wall was examined, and t here was no evidence of any other fistulous openings, then made sure that the sponge was removed. The bladder was drained using the red rubber catheter. The cystoscopy was performed with 30-degree lens and a 17-Belarusian sheath. The camera was placed in th e bladder and then examined. Clearly, there was a divot seen at the upper border of the trigone, rig ht in the center between the ureteric orifices. This was correlating with the efflux of urine into t he vagina, which was confirmed to be fistula. Then, both ureteric orifices had normal jets of urine from them. No evidence of any dysfunction. The entire bladder was examined. No evidence of any orly ors. Mesh in the bladder was about 3.5 cm lateral and distal to the left ureteric orifice. The mesh on vaginal exam palpable. This was a transobturator mesh using a mini sling. I had reviewed the op erative note. Then, once this was all examined very well and no evidence of any other problems, the bladder was drained. Urethra was examined as it was being removed. Then, the patient was recovered from anesthesia, taken to PACU in stable condition. Since there was no evidence of any tumor, there was no need for any biopsies. She will follow up with me in the office and will make a plan. CHAVEZ/ROBERT Voice ID: [id number] Report ID: [id number]
== END 2022-02-04 15:35 | disposition home or self-care (01) ==
LOC: OR 10:19
PROVIDERS: ATTEND Obstetrics & Gynecology
PROC: 3E0K7KZ Introduction of Other Diagnostic Substance into Genitourinary Tract, Via Natural or Artificial Opening (ICD-10-PCS; 2022-02-04)
PROC: 0TJB8ZZ Inspection of Bladder, Via Natural or Artificial Opening Endoscopic (ICD-10-PCS; principal; 2022-02-04 12:30)
DX: N82.0 Vesicovaginal fistula (principal); T83.712A Erosion of implanted urethral mesh to surrounding organ or tissue, initial encounter; N99.3 Prolapse of vaginal vault after hysterectomy; R32 Unspecified urinary incontinence; Z20.822 Contact with and (suspected) exposure to COVID-19
CPT/HCPCS: 82947; 52000; 51700; U0003; J2704 ×2; J2250; J3010; J0690; J7030; J2405